=== PATIENT | male | born 1990 | race Caucasian/White ===

== ENCOUNTER 2018-04-15 01:25 | Emergency (ER) | payer MEDICAID ==
[~2018-04-15] VITALS: Ht 177.8 cm; Wt 90.9 kg
[~2018-04-15 01:25] MED LIST: ALBU18HF2 INH
[2018-04-15 01:30] VITALS: BP 100/58
[2018-04-15] MEDS ORDERED: ibuprofen 200mg tablet PO ONE (01:50)
[2018-04-15] MEDS ORDERED: IBUP-1985 PO (01:53)
== END 2018-04-15 02:28 | disposition home or self-care (01) ==
LOC: ER 01:26
DX: S63.104A Unspecified dislocation of right thumb, initial encounter (principal); F12.90 Cannabis use, unspecified, uncomplicated; Z79.899 Other long term (current) drug therapy; V19.88XA Pedal cyclist (driver) (passenger) injured in other specified transport accidents, initial encounter; Y93.55 Activity, bike riding; Y92.410 Unspecified street and highway as the place of occurrence of the external cause; Y99.8 Other external cause status
CPT/HCPCS: 29125; 73130; 99284; A6449

== ENCOUNTER 2018-04-16 20:30 | Emergency (ER) | payer MEDICAID ==
[~2018-04-16] VITALS: Ht 170.2 cm; Wt 102.0 kg
[~2018-04-16 20:30] MED LIST changes: +IBUP-1985 PO
[2018-04-16 20:33] VITALS: BP 137/76
[2018-04-16] MEDS ORDERED: HYDROcodone/acetaminophen 5mg/325mg tablet PO ONE (21:30)
== END 2018-04-16 21:37 | disposition home or self-care (01) ==
LOC: ER 20:30
DX: S63.104D Unspecified dislocation of right thumb, subsequent encounter (principal); F12.90 Cannabis use, unspecified, uncomplicated; Z79.899 Other long term (current) drug therapy; V19.88XD Pedal cyclist (driver) (passenger) injured in other specified transport accidents, subsequent encounter
CPT/HCPCS: 29125; 99283

== ENCOUNTER 2018-04-21 13:26 | Outpatient (CLI) | payer MEDICAID ==
[2018-04-21 13:37] VITALS: BP 135/78
== END 2018-04-21 14:08 | disposition home or self-care (01) ==
LOC: ORTHO 13:26
PROVIDERS: ATTEND Nurse Practitioner Family
DX: S63.104A Unspecified dislocation of right thumb, initial encounter (principal); F12.90 Cannabis use, unspecified, uncomplicated; X58.XXXA Exposure to other specified factors, initial encounter; Y93.89 Activity, other specified; Y92.89 Other specified places as the place of occurrence of the external cause; Y99.8 Other external cause status
CPT/HCPCS: 99213

== ENCOUNTER 2019-09-07 07:08 | Emergency (ER) | payer MEDICAID ==
[~2019-09-07] VITALS: Ht 185.4 cm; Wt 95.3 kg
[2019-09-07 07:13] VITALS: BP 119/79
[2019-09-07] MEDS ORDERED: LIDOcaine 1% W/epiNEPHrine 1:100,000 20ml vial IJ STA (07:45)
[2019-09-07] MEDS ORDERED: SULF1TAB49 PO (08:28)
== END 2019-09-07 09:04 | disposition home or self-care (01) ==
LOC: ER 07:09
DX: L02.31 Cutaneous abscess of buttock (principal); F17.200 Nicotine dependence, unspecified, uncomplicated; F12.90 Cannabis use, unspecified, uncomplicated; F10.99 Alcohol use, unspecified with unspecified alcohol-induced disorder; Z79.899 Other long term (current) drug therapy; Y90.9 Presence of alcohol in blood, level not specified
CPT/HCPCS: 99283